=== PATIENT | male | born 1965 | race Two or more races ===

== ENCOUNTER 2017-09-23 08:16 | Emergency (ER) | payer BC, MEDICAID, OTHER ==
[~2017-09-23] VITALS: Ht 172.7 cm; Wt 90.7 kg
[2017-09-23 08:38] VITALS: BP 149/90
[2017-09-23] MEDS ORDERED: KETOROLAC TROMETH 60MG/2ML VIAL IM ONE (09:00)
[2017-09-23] MEDS ORDERED: KETOROLAC TROMETH 30 MG/ML 1ML VIAL IV ONE (09:00)
== END 2017-09-23 09:48 | disposition home or self-care (01) ==
LOC: EDBD 08:16 → ER 08:16
DX: S50.11XA Contusion of right forearm, initial encounter (principal); S80.12XA Contusion of left lower leg, initial encounter; S20.222A Contusion of left back wall of thorax, initial encounter; V43.52XA Car driver injured in collision with other type car in traffic accident, initial encounter; Y93.89 Activity, other specified; Y92.488 Other paved roadways as the place of occurrence of the external cause; Y99.8 Other external cause status
CPT/HCPCS: 71101; 73090; 73590; 96374; 99284; J1885

== ENCOUNTER 2020-12-23 08:40 | Emergency (ER) | payer MEDICAID ==
[~2020-12-23] VITALS: Ht 172.7 cm; Wt 86.2 kg
[2020-12-23] MEDS ORDERED: KETOROLAC TROMETH 60MG/2ML VIAL IM ONE (09:15)
[2020-12-23] MEDS ORDERED: HYDROcodone-ACET 5/325MG TAB PO ONE (09:30)
[2020-12-23 09:38] VITALS: BP 131/82
== END 2020-12-23 10:25 | disposition home or self-care (01) ==
LOC: ER 08:40
DX: S39.012A Strain of muscle, fascia and tendon of lower back, initial encounter (principal); X50.0XXA Overexertion from strenuous movement or load, initial encounter; Y93.89 Activity, other specified; Y92.89 Other specified places as the place of occurrence of the external cause; Y99.8 Other external cause status
CPT/HCPCS: 72131; 93005; 96372; 99284; J1885

== ENCOUNTER 2021-06-06 10:04 | Emergency (ER) | payer MEDICAID ==
[~2021-06-06] VITALS: Ht 175.3 cm; Wt 83.9 kg
[2021-06-06] MEDS ORDERED: cefTRIAXone 1GM/50ML D5W 50 ML IV ONE (11:15)
[2021-06-06] MEDS ORDERED: AZITHROMYCIN 500MG/ 250ML 250 ML IV ONE (11:15)
[2021-06-06 11:41] LABS: Basophils # (auto) 0 10 ^3/uL (0-0.2); Basophils % (auto) 0.3 % (0.0-2.0); Eosinophils # (auto) 0 10 ^3/uL (0-0.8); Hematocrit 44.5 % (41.0-53.0); Hemoglobin 15.7 g/dL (13.5-17.5); Lymphocytes # (auto) 1.1 10 ^3/uL (0.4-5.4); Lymphocytes % (auto) 13.9 % (10.0-50.0); Mean Corpuscular Hemoglobin 30.5 pg (28.0-32.0); Mean Corpuscular Hgb Conc. 35.3 g/dL (32.0-36.0); Mean Corpuscular Volume 86.4 fL (80.0-100.0); Monocytes # (auto) 0.5 10 ^3/uL (0-1.3); Monocytes % (auto) 6.2 % (0.0-12.0); Neutrophils # (auto) 6.2 10 ^3/uL (1.6-8.6); Neutrophils % (auto) 79.6 % (37.0-80.0); Red Blood Cells 5.16 10^6/uL (4.5-5.90); Red Cell Distribution Width 12.7 % (11.8-14.3); White Blood Cell 7.7 10^3/uL (4.4-10.8)
[2021-06-06 11:46] LABS: Anion Gap 4 (5-15); Blood Urea Nitrogen 9 mg/dL (7-18); Calcium 8.1 mg/dL (8.5-10.1); Carbon Dioxide 25 mmol/L (21-32); Chloride 108 mmol/L (98-107); Glucose 92 mg/dL (74-106); Potassium 3.7 mmol/L (3.5-5.1); Sodium 137 mmol/L (136-145)
[2021-06-06 11:53] LABS: Alanine Aminotransferase 29 U/L (16-61); Alkaline Phosphatase 74 U/L (45-117); Aspartate Aminotransferase 33 U/L (15-37); BUN/Creatinine Ratio 10.1; Bilirubin, Total 0.4 mg/dL (0.2-1.0); GFR African American 115 mL/min; GFR Non-African American 95 mL/min; Total Protein 7.1 g/dL (6.4-8.2)
[2021-06-06] MEDS ORDERED: DexAMETHasone SOD PHOS 10MG/1ML VIAL INJ IV ONE (12:00)
[2021-06-06 14:17] VITALS: BP 125/66
[2021-06-06] MEDS ORDERED: ACETAMINOPHEN 500 MG TAB PO ONE (14:30)
== END 2021-06-06 15:15 | disposition short-term general hospital (02) ==
LOC: EDBD → ER 10:04
DX: U07.1 COVID-19 (principal); J12.82 Pneumonia due to coronavirus disease 2019; R06.03 Acute respiratory distress
CPT/HCPCS: 36415; 71045; 80053; 83605; 83880; 84484; 85025; 87040; 87426; 96365; 96366; 96368; 96375; 99291; J0456; J0696; J1100

== ENCOUNTER 2021-06-07 03:51 | Inpatient (IN) | payer MEDICAID ==
[~2021-06-07] VITALS: Ht 175.3 cm; Wt 86.6 kg
[2021-06-07 06:12] LABS: Anion Gap 9 (5-15); BUN/Creatinine Ratio 15.2; Blood Urea Nitrogen 14 mg/dL (7-18); Calcium 8.4 mg/dL (8.5-10.1); Carbon Dioxide 24 mmol/L (21-32); Chloride 105 mmol/L (98-107); GFR African American 110 mL/min; GFR Non-African American 91 mL/min; Glucose 111 mg/dL (74-106); Potassium 3.8 mmol/L (3.5-5.1); Sodium 138 mmol/L (136-145)
[2021-06-07 06:17] LABS: Alanine Aminotransferase 29 U/L (16-61); Alkaline Phosphatase 74 U/L (45-117); Aspartate Aminotransferase 33 U/L (15-37); Bilirubin, Total 0.4 mg/dL (0.2-1.0); Total Protein 7.3 g/dL (6.4-8.2)
[2021-06-07 06:29] LABS: Basophils # (auto) 0 10 ^3/uL (0-0.2); Basophils % (auto) 0.1 % (0.0-2.0); Eosinophils # (auto) 0 10 ^3/uL (0-0.8); Hematocrit 43.3 % (41.0-53.0); Hemoglobin 15.3 g/dL (13.5-17.5); Lymphocytes # (auto) 0.8 10 ^3/uL (0.4-5.4); Lymphocytes % (auto) 10.1 % (10.0-50.0); Mean Corpuscular Hemoglobin 30.8 pg (28.0-32.0); Mean Corpuscular Hgb Conc. 35.4 g/dL (32.0-36.0); Mean Corpuscular Volume 87.1 fL (80.0-100.0); Monocytes # (auto) 0.7 10 ^3/uL (0-1.3); Monocytes % (auto) 9.2 % (0.0-12.0); Neutrophils # (auto) 6.2 10 ^3/uL (1.6-8.6); Neutrophils % (auto) 80.6 % (37.0-80.0); Nucleated Red Blood Cells % 0.1 %; Red Blood Cells 4.98 10^6/uL (4.5-5.90); Red Cell Distribution Width 12.5 % (11.8-14.3); White Blood Cell 7.7 10^3/uL (4.4-10.8)
[2021-06-07] MEDS ORDERED: DexAMETHasone SOD PHOS 10MG/1ML VIAL INJ IV ONE (06:30)
[2021-06-07] MEDS ORDERED: ASCORBIC ACID 500 MG TAB PO ONE (06:30)
[2021-06-07] MEDS ORDERED: REMDESIVIR PER PHARMACY 0 ML IV SCH ×2 (06:30→09:45)
[2021-06-07] MEDS ORDERED: ZINC SULFATE 220mg CAP or TAB PO ONE (06:30)
[2021-06-07] MEDS ORDERED: CHOLECALCIFEROL (VITD3) 2,000 UNIT CAP/TAB PO ONE (06:30)
[2021-06-07] MEDS ORDERED: AZITHROMYCIN 500MG/ 250ML 250 ML IV ONE (06:30)
[2021-06-07] MEDS ORDERED: MORPHINE SULF INJ 2 MG/ML SYRINGE 1ML IV PRN (09:45)
[2021-06-07] MEDS ORDERED: NITROGLYCERIN 0.4 MG SL TAB SL PRN (09:45)
[2021-06-07] MEDS ORDERED: ACETAMINOPHEN 500 MG TAB PO PRN (09:45)
[2021-06-07] MEDS: BUDESONIDE (INHALATION) 180 MCG IH IN SCH ×2 (10:00→20:35)
[2021-06-07] MEDS: ZINC SULFATE 220mg CAP or TAB PO SCH (10:33)
[2021-06-07] MEDS: ASCORBIC ACID 1,000 MG TAB PO SCH (10:33)
[2021-06-07] MEDS: DexAMETHasone SOD PHOS 10MG/1ML VIAL INJ IV SCH (10:33)
[2021-06-07] MEDS: IVERMECTIN 3 MG TAB PO SCH (10:33)
[2021-06-07] MEDS: AZITHROMYCIN 500MG/ 250ML 250 ML IV SCH (10:33)
[2021-06-07] MEDS: CHOLECALCIFEROL (VITD3) 2,000 UNIT CAP/TAB PO SCH (10:34)
[2021-06-07] MEDS: ENOXAPARIN SOD 40 MG/0.4 ML SYRINGE SC SCH ×2 (10:34→22:34)
[2021-06-07 10:37] VITALS: BP 114/77
[2021-06-07] MEDS ORDERED: PROMETHAZINE W/CODEINE 5 ML ORAL SYRUP PO PRN (10:45)
[2021-06-07 11:19] VITALS: BP 130/84
[2021-06-07 13:00] VITALS: BP 121/71
[2021-06-07] MEDS ORDERED: REMDESIVIR 200 MG in NS 210ml LOADING DOSE ADULT IV ONE (13:30)
[2021-06-07] MEDS: TOCILIZUMAB 400 MG in SODIUM CHL 0.9% 80 ML IV SCH (14:17)
[2021-06-07 16:41] VITALS: BP 117/72
[2021-06-07] MEDS: PROMETHAZINE W/CODEINE 5 ML ORAL SYRUP PO PRN ×2 (18:33→22:35)
[2021-06-07] MEDS: ALBUTEROL SULF HFA 90MCG INH 200DOSE IN PRN (20:35)
[2021-06-07 22:00] VITALS: BP 128/84
[2021-06-08 05:00] VITALS: BP 130/71
[2021-06-08 06:49] LABS: Potassium 4.2 mmol/L (3.5-5.1)
[2021-06-08 07:04] LABS: Albumin 2.6 g/dL (3.4-5.0); BUN/Creatinine Ratio 19.1; Bilirubin, Total 0.4 mg/dL (0.2-1.0); Calcium 8.5 mg/dL (8.5-10.1); Total Protein 6.6 g/dL (6.4-8.2)
[2021-06-08] MEDS: DexAMETHasone SOD PHOS 10MG/1ML VIAL INJ IV SCH (08:10)
[2021-06-08] MEDS: ZINC SULFATE 220mg CAP or TAB PO SCH (08:11)
[2021-06-08] MEDS: AZITHROMYCIN 500MG/ 250ML 250 ML IV SCH (08:11)
[2021-06-08] MEDS: ASCORBIC ACID 1,000 MG TAB PO SCH (08:12)
[2021-06-08] MEDS: CHOLECALCIFEROL (VITD3) 2,000 UNIT CAP/TAB PO SCH (08:12)
[2021-06-08] MEDS: IVERMECTIN 3 MG TAB PO SCH (08:12)
[2021-06-08] MEDS: ENOXAPARIN SOD 40 MG/0.4 ML SYRINGE SC SCH ×2 (08:13→22:05)
[2021-06-08] MEDS: ALBUTEROL SULF HFA 90MCG INH 200DOSE IN PRN (08:56)
[2021-06-08] MEDS: BUDESONIDE (INHALATION) 180 MCG IH IN SCH (08:57)
[2021-06-08 09:00] VITALS: BP 108/72
[2021-06-08] MEDS: TOCILIZUMAB 400 MG in SODIUM CHL 0.9% 80 ML IV SCH (12:00)
[2021-06-08 13:00] VITALS: BP 130/83
[2021-06-08] MEDS: PROMETHAZINE W/CODEINE 5 ML ORAL SYRUP PO PRN ×2 (14:22→20:07)
[2021-06-08] MEDS: REMDESIVIR 100mg 100 MG in SODIUM CHL 0.9% 230 ML IV SCH (15:00)
[2021-06-08 17:00] VITALS: BP 118/63
[2021-06-08 22:00] VITALS: BP 121/69
[2021-06-09 05:00] VITALS: BP 117/75
[2021-06-09] MEDS: PROMETHAZINE W/CODEINE 5 ML ORAL SYRUP PO PRN ×2 (06:27→10:34)
[2021-06-09 08:26] LABS: Albumin 2.5 g/dL (3.4-5.0); BUN/Creatinine Ratio 23.8; Calcium 7.9 mg/dL (8.5-10.1); Potassium 4.1 mmol/L (3.5-5.1)
[2021-06-09 08:29] LABS: Bilirubin, Total 0.3 mg/dL (0.2-1.0); Total Protein 5.9 g/dL (6.4-8.2)
[2021-06-09 08:30] VITALS: BP 110/57
[2021-06-09] MEDS: ASCORBIC ACID 1,000 MG TAB PO SCH (09:12)
[2021-06-09] MEDS: IVERMECTIN 3 MG TAB PO SCH (09:12)
[2021-06-09] MEDS: AZITHROMYCIN 500MG/ 250ML 250 ML IV SCH (09:12)
[2021-06-09] MEDS: CHOLECALCIFEROL (VITD3) 2,000 UNIT CAP/TAB PO SCH (09:12)
[2021-06-09] MEDS: ZINC SULFATE 220mg CAP or TAB PO SCH (09:12)
[2021-06-09] MEDS: DexAMETHasone SOD PHOS 10MG/1ML VIAL INJ IV SCH (09:13)
[2021-06-09] MEDS: ENOXAPARIN SOD 40 MG/0.4 ML SYRINGE SC SCH ×2 (10:00→22:22)
[2021-06-09] MEDS: BUDESONIDE (INHALATION) 180 MCG IH IN SCH ×2 (10:55→21:18)
[2021-06-09 12:30] VITALS: BP 104/60
[2021-06-09] MEDS: REMDESIVIR 100mg 100 MG in SODIUM CHL 0.9% 230 ML IV SCH (14:11)
[2021-06-09] MEDS: guaiFENesin-DM 100/10mg/5ml SYR PO PRN ×2 (15:59→20:07)
[2021-06-09 17:00] VITALS: BP 123/70
[2021-06-09] MEDS: ALBUTEROL SULF HFA 90MCG INH 200DOSE IN PRN (21:18)
[2021-06-09 21:54] VITALS: BP 120/68
[2021-06-10] MEDS: guaiFENesin-DM 100/10mg/5ml SYR PO PRN ×4 (00:07→20:55)
[2021-06-10 05:00] VITALS: BP 112/62
[2021-06-10 06:54] LABS: Potassium 4.1 mmol/L (3.5-5.1)
[2021-06-10 06:59] LABS: Albumin 2.6 g/dL (3.4-5.0); BUN/Creatinine Ratio 22.5; Bilirubin, Total 0.4 mg/dL (0.2-1.0); Total Protein 5.9 g/dL (6.4-8.2)
[2021-06-10] MEDS: ALBUTEROL SULF HFA 90MCG INH 200DOSE IN PRN (07:46)
[2021-06-10] MEDS: BUDESONIDE (INHALATION) 180 MCG IH IN SCH ×2 (07:46→20:30)
[2021-06-10 08:50] VITALS: BP 127/73
[2021-06-10] MEDS: ZINC SULFATE 220mg CAP or TAB PO SCH (09:15)
[2021-06-10] MEDS: ENOXAPARIN SOD 40 MG/0.4 ML SYRINGE SC SCH ×2 (09:15→21:34)
[2021-06-10] MEDS: ASCORBIC ACID 1,000 MG TAB PO SCH (09:15)
[2021-06-10] MEDS: IVERMECTIN 3 MG TAB PO SCH (09:15)
[2021-06-10] MEDS: CHOLECALCIFEROL (VITD3) 2,000 UNIT CAP/TAB PO SCH (09:15)
[2021-06-10] MEDS: AZITHROMYCIN 500MG/ 250ML 250 ML IV SCH (09:15)
[2021-06-10] MEDS: DexAMETHasone SOD PHOS 10MG/1ML VIAL INJ IV SCH (09:16)
[2021-06-10 12:13] VITALS: BP 108/67
[2021-06-10] MEDS ORDERED: ERGOCALCIFEROL 50,000 UNIT(1.25MG) CAP PO SCH (12:15)
[2021-06-10] MEDS: REMDESIVIR 100mg 100 MG in SODIUM CHL 0.9% 230 ML IV SCH (14:29)
[2021-06-10 15:50] VITALS: BP 108/67
[2021-06-10 17:03] VITALS: BP 131/68
[2021-06-10 22:12] VITALS: BP 120/73
[2021-06-11 05:05] VITALS: BP 117/72
[2021-06-11] MEDS: BUDESONIDE (INHALATION) 180 MCG IH IN SCH ×2 (06:47→19:35)
[2021-06-11] MEDS: ALBUTEROL SULF HFA 90MCG INH 200DOSE IN PRN ×2 (06:47→19:35)
[2021-06-11] MEDS: guaiFENesin-DM 100/10mg/5ml SYR PO PRN ×3 (08:07→21:17)
[2021-06-11 08:18] LABS: Albumin 2.7 g/dL (3.4-5.0); Potassium 4.1 mmol/L (3.5-5.1)
[2021-06-11 08:21] LABS: BUN/Creatinine Ratio 21.4
[2021-06-11 08:23] LABS: Bilirubin, Total 0.4 mg/dL (0.2-1.0); Total Protein 5.9 g/dL (6.4-8.2)
[2021-06-11 09:14] VITALS: BP 95/54
[2021-06-11] MEDS: CHOLECALCIFEROL (VITD3) 2,000 UNIT CAP/TAB PO SCH (09:44)
[2021-06-11] MEDS: IVERMECTIN 3 MG TAB PO SCH (09:44)
[2021-06-11] MEDS: ZINC SULFATE 220mg CAP or TAB PO SCH (09:44)
[2021-06-11] MEDS: ASCORBIC ACID 1,000 MG TAB PO SCH (09:44)
[2021-06-11] MEDS: AZITHROMYCIN 500MG/ 250ML 250 ML IV SCH (09:45)
[2021-06-11] MEDS: DexAMETHasone SOD PHOS 10MG/1ML VIAL INJ IV SCH (09:45)
[2021-06-11] MEDS: ENOXAPARIN SOD 40 MG/0.4 ML SYRINGE SC SCH ×2 (09:45→21:17)
[2021-06-11 13:19] VITALS: BP 107/72
[2021-06-11] MEDS: REMDESIVIR 100mg 100 MG in SODIUM CHL 0.9% 230 ML IV SCH (14:56)
[2021-06-11 17:15] VITALS: BP 113/70
[2021-06-11 22:20] VITALS: BP 116/79
[2021-06-12 05:07] VITALS: BP 125/88
[2021-06-12] MEDS: guaiFENesin-DM 100/10mg/5ml SYR PO PRN ×2 (06:44→19:12)
[2021-06-12 07:05] LABS: Basophils # (auto) 0 10 ^3/uL (0-0.2); Basophils % (auto) 0.2 % (0.0-2.0); Eosinophils # (auto) 0.1 10 ^3/uL (0-0.8); Lymphocytes # (auto) 2.6 10 ^3/uL (0.4-5.4); Monocytes # (auto) 1.1 10 ^3/uL (0-1.3)
[2021-06-12 07:07] LABS: Eosinophils % (auto) 0.5 % (0.0-7.0); Hematocrit 42.4 % (41.0-53.0); Hemoglobin 14.8 g/dL (13.5-17.5); Lymphocytes % (auto) 22.9 % (10.0-50.0); Mean Corpuscular Hemoglobin 30.2 pg (28.0-32.0); Mean Corpuscular Hgb Conc. 34.8 g/dL (32.0-36.0); Mean Corpuscular Volume 86.8 fL (80.0-100.0); Monocytes % (auto) 9.5 % (0.0-12.0); Neutrophils # (auto) 7.6 10 ^3/uL (1.6-8.6); Neutrophils % (auto) 66.9 % (37.0-80.0); Nucleated Red Blood Cells % 0.1 %; Red Blood Cells 4.88 10^6/uL (4.5-5.90); Red Cell Distribution Width 12.4 % (11.8-14.3); White Blood Cell 11.3 10^3/uL (4.4-10.8)
[2021-06-12 07:08] LABS: BUN/Creatinine Ratio 21.4; Calcium 8.2 mg/dL (8.5-10.1)
[2021-06-12 08:00] VITALS: BP 102/63
[2021-06-12] MEDS: DexAMETHasone SOD PHOS 10MG/1ML VIAL INJ IV SCH (09:32)
[2021-06-12] MEDS: ZINC SULFATE 220mg CAP or TAB PO SCH (09:32)
[2021-06-12] MEDS: CHOLECALCIFEROL (VITD3) 2,000 UNIT CAP/TAB PO SCH (09:33)
[2021-06-12] MEDS: ASCORBIC ACID 1,000 MG TAB PO SCH (09:33)
[2021-06-12] MEDS: ENOXAPARIN SOD 40 MG/0.4 ML SYRINGE SC SCH (09:34)
[2021-06-12] MEDS: BUDESONIDE (INHALATION) 180 MCG IH IN SCH (10:00)
[2021-06-12 12:00] VITALS: BP 105/68
[2021-06-12 16:00] VITALS: BP 117/70
[2021-06-12 18:18] VITALS: BP 117/70
== END 2021-06-12 19:30 | disposition home or self-care (01) | DRG 720 ==
LOC: ER 03:51 → TELE 09:43 → TELE-EAST 10:49
PROVIDERS: ADMIT Nurse Practitioner Acute Care; ATTEND Internal Medicine
PROC: XW033E5 Introduction of Remdesivir Anti-infective into Peripheral Vein, Percutaneous Approach, New Technology Group 5 (ICD-10-PCS; principal; 2021-06-07)
PROC: XW033H5 Introduction of Tocilizumab into Peripheral Vein, Percutaneous Approach, New Technology Group 5 (ICD-10-PCS; 2021-06-08)
DX: A41.89 Other specified sepsis (principal); J96.01 Acute respiratory failure with hypoxia; J12.82 Pneumonia due to coronavirus disease 2019; U07.1 COVID-19; E44.0 Moderate protein-calorie malnutrition; D89.834 Cytokine release syndrome, grade 4; D68.59 Other primary thrombophilia
CPT/HCPCS: 36415; 71045; 80048; 80053; 82306; 82728; 83605; 83615; 84484; 85025; 85379; 86141; 87040; 87426; 93005; 94640; 96365; 96366; 96372; 96375; 96376; 99291; G0378; J1100